=== PATIENT | male | born 1940 | race Two or more races ===

== ENCOUNTER 2017-06-11 20:37 | Emergency (ER) | payer MEDICAID ==
[~2017-06-11] VITALS: Ht 177.8 cm; Wt 90.8 kg
--- NOTE | 2017-06-11 21:14 | NUR ---
ER MD AT BEDSIDE FOR PATIENT EVALUATION
[2017-06-11 21:29] VITALS: BP 130/80
== END 2017-06-11 21:29 | disposition home or self-care (01) ==
LOC: ER 20:45
DX: K04.7 Periapical abscess without sinus (principal); E78.00 Pure hypercholesterolemia, unspecified
CPT/HCPCS: A4663